=== PATIENT | female | born 1955 | race Hispanic/Latino ===

== ENCOUNTER → 2019-09-03 | Outpatient (CLI) | payer OTHER | LOC: DX 11:07 | PROVIDERS: ATTEND Internal Medicine Critical Care Medicine | DX: J69.0 Pneumonitis due to inhalation of food and vomit (principal) | CPT/HCPCS: 74230; 87635 ==

== ENCOUNTER → 2020-01-19 | Outpatient (CLI) | payer OTHER ==
[~2020-01-19] VITALS: Ht 160 cm; Wt 54.0 kg
[~2020-01-19] MED LIST: ALENDRONATE SOD70 MG PO; CEVIMELINE HCL30 MG PO; FUROSEMIDE40 MG PO; HYDROXYCHLOROQ200 MG PO; LEVOTHYROXINE50 MCG PO; LOSARTAN POTAS100 MG PO; LYRICA50 MG PO; NIFEDIPINE ER30 M1 PO; OMEPRAZOLE40 MG PO; PANTOPRAZOLE SO40 MG PO; PREDNISONE5 MG PO; SIMVASTATIN20 MG PO
[2020-01-19 12:59] LABS: BASOPHILS % 0.5 % (0.0-1.0); EOSINOPHILS # (AUTO) 0.2 (0.0-0.4); EOSINOPHILS % 2.3 % (0.0-6.0); HEMATOCRIT 32.7 % (34.2-44.1); HEMOGLOBIN 10.2 g/dL (12.0-16.0); LYMPHOCYTES # (AUTO) 2.4 (1.0-3.2); LYMPHOCYTES % 32.3 % (18.0-39.1); MEAN CORPUSCULAR HEMOGLOBIN 27.6 pg (28-32); MEAN CORPUSCULAR HGB CONC 31.2 g/dL (31-35); MEAN CORPUSCULAR VOLUME 88.6 fL (81-99); MONOCYTES % 12.9 % (4.4-11.3); NEUTROPHILS # (AUTO) 3.9 (2.1-6.9); NEUTROPHILS % 51.7 % (38.7-80.0); PLATELET COUNT 162 x10e3/uL (140-360); RED BLOOD COUNT 3.69 x10e6/uL (3.6-5.1); RED CELL DISTRIBUTION WIDTH 16.1 % (11.7-14.4)
== END ==
LOC: DX 06:15 → EDSTATUS 01-22 09:00
PROVIDERS: ATTEND Internal Medicine Gastroenterology
DX: Z01.812 Encounter for preprocedural laboratory examination (principal); Z20.828 Contact with and (suspected) exposure to other viral communicable diseases; Z12.11 Encounter for screening for malignant neoplasm of colon; Z68.21 Body mass index [BMI] 21.0-21.9, adult; I10 Essential (primary) hypertension; E11.9 Type 2 diabetes mellitus without complications
CPT/HCPCS: 36415; 85025; 93005; U0002

== ENCOUNTER 2021-08-12 12:43 | Emergency (ER) | payer OTHER ==
[~2021-08-12] VITALS: Ht 157.5 cm; Wt 59.9 kg
[2021-08-12] MEDS ORDERED: Morphine 4mg Syringe 4 MG/ML INJ IV PRN (13:15)
[2021-08-12] MEDS ORDERED: ONDANSETRON HCL INJ 2MG/ML 2ML 2 MG/ML VIAL IV PRN (13:15)
[2021-08-12] MEDS ORDERED: SODIUM CHLORIDE 0.9% 1000ML 1,000 ML IV ONE (13:15)
[2021-08-12 13:20] LABS: BASOPHILS # (AUTO) 0.1 (0.0-0.1); BASOPHILS % 0.4 % (0.0-1.0); EOSINOPHILS # (AUTO) 0.1 (0.0-0.4); EOSINOPHILS % 0.6 % (0.0-6.0); HEMOGLOBIN 12.2 g/dL (12.0-16.0); LYMPHOCYTES # (AUTO) 2.2 (1.0-3.2); MEAN CORPUSCULAR HEMOGLOBIN 30.5 pg (28-32); MEAN CORPUSCULAR HGB CONC 31.3 g/dL (31-35); MEAN CORPUSCULAR VOLUME 97.5 fL (81-99); MONOCYTES # (AUTO) 1.3 (0.2-0.8); MONOCYTES % 10.4 % (4.4-11.3); NEUTROPHILS # (AUTO) 8.7 (2.1-6.9); NEUTROPHILS % 70.3 % (38.7-80.0); PLATELET COUNT 223 x10e3/uL (140-360); RED CELL DISTRIBUTION WIDTH 15.3 % (11.7-14.4)
[2021-08-12 13:46] LABS: ALBUMIN 3.2 g/dL (3.5-5.0); ALBUMIN/GLOBULIN RATIO 0.6 (0.8-2.0); ANION GAP 17.5 mmol/L (8-16); CALCIUM 9.2 mg/dL (8.4-10.2); CREATININE, SERUM 1.1 mg/dL (0.57-1.11); POTASSIUM 3.5 mmol/L (3.5-5.1)
[2021-08-12] MEDS ORDERED: IOPAMIDOL 370 MG/ML 100 ML INFUS..BTL INJ ONE (14:17)
[2021-08-12] MEDS ORDERED: TRAMADOL HCL 50 MG TAB PO ONE (15:30)
[2021-08-12] MEDS ORDERED: ULTRAM 50MG50 MG PO (15:31)
[2021-08-12] MEDS ORDERED: DICYCLOMINE HCL20 MG PO (15:33)
[2021-08-12] MEDS ORDERED: ONDANSETRON ODT4 MG PO (15:33)
== END 2021-08-12 16:45 | disposition home or self-care (01) ==
LOC: ER 12:48
DX: R10.11 Right upper quadrant pain (principal); R11.0 Nausea; R94.5 Abnormal results of liver function studies; I10 Essential (primary) hypertension; E03.9 Hypothyroidism, unspecified; E78.5 Hyperlipidemia, unspecified; J84.10 Pulmonary fibrosis, unspecified; M32.9 Systemic lupus erythematosus, unspecified
CPT/HCPCS: 36415; 74177; 80053; 83690; 85025; 93005; 99284; J2270; J2405; J7030; Q9967

== ENCOUNTER 2022-01-14 02:37 | Emergency (ER) | payer OTHER ==
[~2022-01-14] VITALS: Ht 157.5 cm; Wt 59.9 kg
[~2022-01-14 02:37] MED LIST changes: +DICYCLOMINE HCL20 MG PO; +ONDANSETRON ODT4 MG PO; +ULTRAM 50MG50 MG PO
[2022-01-14] MEDS ORDERED: ACETAMINOPHEN 325 MG TAB PO ONE (03:00)
[2022-01-14] MEDS ORDERED: NAPROSYN500 MG PO (03:56)
[2022-01-14] MEDS ORDERED: ULTRAM50 MG PO (03:56)
[2022-01-14] MEDS ORDERED: TRAMADOL HCL 50 MG TAB PO ONE (04:00)
[2022-01-14] MEDS ORDERED: TRAMADOL HCL 50 MG TAB ONE (04:08)
== END 2022-01-14 05:05 | disposition home or self-care (01) ==
LOC: ER 02:39
DX: S00.83XA Contusion of other part of head, initial encounter (principal); S70.02XA Contusion of left hip, initial encounter; S40.012A Contusion of left shoulder, initial encounter; W01.0XXA Fall on same level from slipping, tripping and stumbling without subsequent striking against object, initial encounter; Y93.01 Activity, walking, marching and hiking; Y92.89 Other specified places as the place of occurrence of the external cause; I10 Essential (primary) hypertension; E78.5 Hyperlipidemia, unspecified; E03.9 Hypothyroidism, unspecified; M32.9 Systemic lupus erythematosus, unspecified; J84.10 Pulmonary fibrosis, unspecified
CPT/HCPCS: 70450; 72125; 99283